=== PATIENT | female | born 1990 | race Caucasian/White ===

== ENCOUNTER 2021-02-20 23:58 | Emergency (ER) | payer BC ==
[~2021-02-20] VITALS: Ht 160 cm; Wt 94.0 kg
[2021-02-21] MEDS ORDERED: HYDROcodone/APAP 5/325MG 1 TAB TABLET PO ONE (00:30)
--- NOTE | 2021-02-21 00:30 | PHYS DOC ---
General Adult EDM: Chief Complaint: GENERALIZED BODY ACHES HPI: HPI: Patient is a [age]-year-old female who presents to the ER for generalized body aches. No treatment prior to arrival. Patient is mildly tachycardic in the ER. She denies dysuria, fevers, cough, sore throat, shortness of breath, sick expo sures, nausea, vomiting, loss of taste or smell. She states she has a history of arthritis. She states that her doctor is trying to get her placed onto Humira but has not yet. She reports that this pain is different than her arthritis pain. Patient is vaccinated for COVID-19. (MANAN MANRIQUEZ APRN) Review of Systems: Review of Systems: 14 body systems of the review of systems have been reviewed. See HPI for pertinent positive and negative responses, otherwise all other systems are negative, nonpertinent or noncontributory (MANAN MANRIQUEZ APRN) Physical Exam: PE: Constitutional: Well developed, well nourished, no acute distress, non-toxic a ppearance. [] HENT: Normocephalic, atraumatic Eyes: PERRL, EOMI, conjunctiva normal, no discharge. [] Neck: Normal range of motion, no stridor Cardiovascular: Normal peripheral perfusion, tachycardia Lungs & Thorax: Normal work of breathing, no tachypnea Abdomen: Obese, soft Skin: Warm, dry, no erythema, no rash. [] Back: Normal range of motion Extremities: No tenderness, no cyanosis, no clubbing, ROM intact, no edema. [] Neurologic: Alert and oriented X 3, normal motor function, normal sensory function, no focal deficits noted. [] Psychologic: Affect normal, judgement normal, mood normal. [] (MANAN MANRIQUEZ APRN) Current Patient Data: Labs: Laboratory Tests Test 02/21/21 01:00 02/21/21 01:05 White Blood Count 9.8 x10^3/uL Red Blood Count 4.77 x10^6/uL Hemoglobin 13.9 g/dL Hematocrit 40.6 % Mean Corpuscular Volume 85 fL Mean Corpuscular Hemoglobin 29 pg Mean Corpuscular Hemoglobin Concent 34 g/dL Red Cell Distribution Width 13.0 % Platelet Count 187 x10^3/uL Neutrophils (%) (Auto) 71 % Lymphocytes (%) (Auto) 16 % Monocytes (%) (Auto) 11 % Eosinophils (%) (Auto) 2 % Basophils (%) (Auto) 1 % Neutrophils # (Auto) 7.0 x10^3uL Lymphocytes # (Auto) 1.6 x10^3/uL Monocytes # (Auto) 1.1 x10^3/uL Eosinophils # (Auto) 0.2 x10^3/uL Basophils # (Auto) 0.1 x10^3/uL Sodium Level 138 mmol/L Potassium Level 3.7 mmol/L Chloride Level 102 mmol/L Carbon Dioxide Level 28 mmol/L Anion Gap 8 Blood Urea Nitrogen 5 mg/dL Creatinine 0.7 mg/dL Estimated GFR (Cockcroft-Gault) 97.6 BUN/Creatinine Ratio 7 Glucose Level 112 mg/dL Calcium Level 9.1 mg/dL Total Bilirubin 0.4 mg/dL Aspartate Amino Transf (AST/SGOT) 15 U/L Alanine Aminotransferase (ALT/SGPT) 25 U/L Alkaline Phosphatase 81 U/L Total Protein 7.5 g/dL Albumin 3.3 g/dL Albumin/Globulin Ratio 0.8 Urine Collection Type Unknown Urine Color Yellow Urine Clarity Hazy Urine pH 7.0 Urine Specific [place] 1.020 Urine Protein Neg Urine Glucose (UA) Neg mg/dL Urine Ketones (Stick) Neg mg/dL Urine Blood Neg Urine Nitrite Pos Urine Bilirubin Neg Urine Urobilinogen Dipstick 1.0 mg/dL Urine Leukocyte Esterase Small Urine RBC 0 /HPF Urine WBC 11-20 /HPF Urine Squamous Epithelial Cells Few /LPF Urine Bacteria Many /HPF Current Medications Medications (Trade) Dose Ordered Sig/Ana Route PRN Reason Start Time Stop Time Status Last Admin Dose Admin Acetaminophen/ Hydrocodone Bitart (Lortab 5/325) 1 tab 1X ONCE PO 02/21/21 00:30 02/21/21 00:44 DC 02/21/21 00:51 (PIO CHEEK MD) EKG: EKG: [] (MANAN MANRIQUEZ APRN) Radiology/Procedures: Radiology/Procedures: [] (MANAN MANRIQUEZ APRN) Heart Score: C/O Chest Pain: N/A Risk Factors: Risk Factors: DM, Current or recent (<one month) smoker, HTN, HLP, family history of CAD, obesity. Risk Scores: Score 0 - 3: 2.5% MACE over next 6 weeks - Discharge Home Score 4 - 6: 20.3% MACE over next 6 weeks - Admit for Clinical Observation Score 7 - 10: 72.7% MACE over next 6 weeks - Early Invasive Strategies (MANAN MANRIQUEZ APRN) C/O Chest Pain: No (PIO CHEEK MD) Course & Med Decision Making: Course & Med Decision Making Pertinent Labs and Imaging studies reviewed. (See chart for details) [] Patient is a 31-year-old female who presents to the ER with generalized body aches. Patient was noted to be mildly tachycardic with a rate of 115. Work-up in the ER consisted of blood work, urinalysis. Patient's pain treated with pain management in the ER. 1254: lab work is pending at this time. I discussed patients case with supervising physician and he will assume patient care at this time. (MANAN MANRIQUEZ APRN) Course & Med Decision Making Patient was seen by nurse practitioner at the start of evaluation and laboratory studies were pending. I just evaluated patient who had presented with generalized body ache and fatigue over the last several days. She has history of rheumatoid arthritis and is awaiting start of Humira by her primary care physician and mat sewer but still likely has 10 to 14 days to go before she could do that. Because of this generalized symptoms of malaise and not feeling well as well having mild fever at home, Covid test has also been sent. Her laboratory studies including CBC and CMP were unremarkable. I have sent for sed rate more to assist her mat sewer make further decision. Her urine analysis does show signs of urinary tract infection and patient was treated with nitrofurantoin. She received 1 dose of Toradol in the emergency department. Final impression: Acute UTI, acute arthralgia Disposition: Discharged home on prescription for nitrofurantoin (PIO CHEEK MD) Dragon Disclaimer: [place] Disclaimer: This electronic medical record was generated, in whole or in part, using a voice recognition dictation system. (MANAN MANRIQUEZ APRN) Departure Departure: Impression: Primary Impression: Arthralgia Additional Impression: UTI (urinary tract infection) Disposition: HOME / SELF CARE / HOMELESS Condition: IMPROVED Referrals: LORI BRADLEY (PCP) see your doctor in 1-2 days. Patient Instructions: Arthralgia, Urinary Tract Infection Scripts Nitrofurantoin Macrocrystal (NITROFURANTOIN) 100 Mg Capsule 1 CAP PO BID for UTI, #14 CAP Prov: PIO CHEEK MD 02/21/21 AMNAN MANRIQUEZ APRN Feb 21, 2021 00:30 PIO CHEEK MD Feb 21, 2021 02:25
[2021-02-21 01:26] LABS: BASO # 0.1 x10^3/uL (0.0-0.2); BASO % 1 % (0-3); EOS # 0.2 x10^3/uL (0.0-0.7); EOS % 2 % (0-3); HEMATOCRIT 40.6 % (36.0-47.0); HEMOGLOBIN 13.9 g/dL (12.0-15.5); LYMPH # 1.6 x10^3/uL (1.0-4.8); LYMPH % 16 % (24-48); MEAN CORPUSCULAR HEMOGLOBIN 29 pg (25-35); MEAN CORPUSCULAR HGB CONC 34 g/dL (31-37); MEAN CORPUSCULAR VOLUME 85 fL (79-100); MONO # 1.1 x10^3/uL (0.0-1.1); MONO % 11 % (0-9); NEUT % 71 % (31-73); PLATELET COUNT 187 x10^3/uL (140-400); RED BLOOD COUNT 4.77 x10^6/uL (3.50-5.40); WHITE BLOOD COUNT 9.8 x10^3/uL (4.0-11.0)
[2021-02-21 01:36] LABS: CALCIUM 9.1 mg/dL (8.5-10.1); CREATININE 0.7 mg/dL (0.6-1.0); GFR 97.6; POTASSIUM 3.7 mmol/L (3.5-5.1)
[2021-02-21 01:37] LABS: BILIRUBIN,URINE NEG (NEG); CLARITY,URINE HAZY; COLOR,URINE YELLOW; GLUCOSE,URINE NEG (NEG); NITRITE,URINE POS (NEG); RBC,URINE 0 /HPF (0-2)
[2021-02-21 01:38] LABS: BACTERIA,URINE MANY /HPF (0-FEW); SQUAMOUS EPITHELIAL CELL,UR FEW /LPF
[2021-02-21 01:42] LABS: ALBUMIN 3.3 g/dL (3.4-5.0); ALBUMIN/GLOBULIN RATIO 0.8 (1.0-1.7); TOTAL BILIRUBIN 0.4 mg/dL (0.2-1.0); TOTAL PROTEIN 7.5 g/dL (6.4-8.2)
[2021-02-21] MEDS ORDERED: KETOROLAC 60 MG/2 ML VIAL. IM ONE (02:15)
[2021-02-21] MEDS ORDERED: NITROFURANTOIN MONOHYD/M-CRYST 100 MG CAPSULE. PO ONE (02:15)
[2021-02-21] MEDS ORDERED: NITR100C PO (02:25)
[2021-02-21 02:38] VITALS: BP 140/89
== END 2021-02-21 02:33 | disposition home or self-care (01) ==
LOC: ER 23:58
DX: N39.0 Urinary tract infection, site not specified (principal); M25.50 Pain in unspecified joint; Z20.822 Contact with and (suspected) exposure to COVID-19
CPT/HCPCS: 36415; 80053; 81001; 85025; 85651; 87086; 96372; 99283; C9803; J1885; U0003